=== PATIENT | male | born 1990 | race African-American/Black ===

== ENCOUNTER 2019-03-30 21:28 | Emergency (ER) | payer SELFPAY ==
[2019-03-30] MEDS ORDERED: Ondansetron PF 4 MG/2 ML Vial ONE (21:42)
[2019-03-30] MEDS ORDERED: Morphine 4 MG/ML VIAL ONE ×3 (21:42→23:15)
--- NOTE | 2019-03-30 22:07 | RAD ---
EXAM: 2 views of the right tibia/fibula HISTORY: Leg pain after a horse fell on leg COMPARISON: None FINDINGS: There are transverse fractures of the distal third of the diaphyses of the tibia and fibula . Mild to moderate soft tissue swelling is seen. No degenerative changes are seen in the knee or ankle. IMPRESSION: Distal tibia and fibula fractures
[2019-03-30] MEDS ORDERED: HYDROcodone/Acetaminophen 5/325 mg Tablet ONE (22:49)
== END 2019-03-31 | disposition short-term general hospital (02) ==
LOC: NAV ERS 21:28
DX: S82.301A Unspecified fracture of lower end of right tibia, initial encounter for closed fracture (principal); S82.831A Other fracture of upper and lower end of right fibula, initial encounter for closed fracture; F17.210 Nicotine dependence, cigarettes, uncomplicated; W55.19XA Other contact with horse, initial encounter
CPT/HCPCS: 94760; 96374; 96375; 96376; J2270; J2405